=== PATIENT | male | born 1995 | race Caucasian/White ===

== ENCOUNTER 2017-04-11 23:37 | Emergency (ER) | payer OTHER ==
--- NOTE | 2017-04-11 23:55 | ED Physician Documentation ---
PD HPI UPPER EXT INJURY - Stated complaint Stated Complaint: RT HAND LACERATION - Chief complaint Chief Complaint: Laceration - History obtained from History obtained from: Patient - History of Present Illness Location: Right, Hand Type of injury: Laceration Where injury occurred: Home Timing - onset: Enter time (22:00) Timing - details: Abrupt onset Improved by: Rest Worsened by: Moving Associated symptoms: No: Weakness, Numbness Similar symptoms before: Has not had sx before Recently seen: Not recently seen - Additonal information Additional information: was throwing out garbage that contained broken glass, tripped and made contact with the broken glass, causing laceration to right hand at base of thumb. Patient is right-hand dominant Review of Systems Skin: reports: Laceration (s) Musculoskeletal: reports: Extremity pain Neurologic: denies: Focal weakness, Numbness PD PAST MEDICAL HISTORY - Past Medical History Past Medical History: No Cardiovascular: None Respiratory: None Neuro: None Endocrine/Autoimmune: None GI: None : None HEENT: None Psych: None Musculoskeletal: None Derm: None - Past Surgical History Past Surgical History: No - Present Medications Home Medications: Ambulatory Orders Medication Instructions Recorded Confirmed Amoxicillin 1 cap PO 04/11/17 Pseudoephedrine [Sudafed] 1 tab PO DAILY PRN 04/11/17 04/11/17 - Allergies Allergies/Adverse Reactions: Allergies Allergy/AdvReac Type Severity Reaction Status Date / Time No Known Drug Allergies Allergy Verified 04/11/17 23:44 - Social History Does the pt smoke?: Yes Smoking Status: Current every day smoker Does the pt drink ETOH?: Yes ETOH Use: Wine, Beer Does the pt have substance abuse?: No - Immunizations Immunizations are current?: Yes - POLST Patient has POLST: No PD ED PE NORMAL - Vitals Vital signs reviewed: Yes - General General: Alert and oriented X 3, No acute distress, Well developed/nourished - Extremities Extremities: No tenderness to palpate, Normal ROM s pain - Neuro Neuro: No motor deficit (full strength in flexion/extension/abduction/adduction of right thumb (PIP and IP joints tested independently)), No sensory deficit PD ED PE EXPANDED - Extremities HARISH UE/Hands Visual: 1 - laceration (2 cm) Results - Vitals Vitals: Vital Signs - 24 hr 04/11/17 04/12/17 23:40 01:02 Temperature 36.5 C Heart Rate 107 H 87 Respiratory 16 20 Rate Blood Pressure 136/87 H 169/87 H O2 Saturation 99 98 Oxygen O2 Source Room air Procedures - Laceration (location) Finger right Ventral Length in cm: 2 Wound type: Linear, Into subcut fat, Clean Neurovascular status: Sensory intact, Motor intact, Vascular intact Tendon involvement: Tendon intact Anesthesia: Lidocaine 1% Wound Preparation: Chlorhexadine Skin layer closure: Nylon, Interrupted (running sutures with one simple interrupted), Running, Size #-0 - enter number (4-0) Other: Patient tolerated well, No complications, Neurovascular intact, Dressing applied, Tetanus UTD Complexity: Simple PD MEDICAL DECISION MAKING - ED course Complexity details: considered differential, d/w patient Departure - Departure Disposition: 01 Home, Self Care Clinical Impression: Laceration Condition: Good Instructions: ED Laceration Hand Follow-Up: VERNON VALLE MD [Primary Care Provider] - (7-10 days for removal of the stitches) Forms: Activity restrictions Discharge Date/Time: 04/12/17 01:11
[2017-04-12] MEDS ORDERED: LIDOCAINE 1% 2 ML VIAL ONE (00:21)
[2017-04-12] MEDS ORDERED: BACITRACIN OINT TOP STA (00:53)
[2017-04-12] MEDS ORDERED: BACITRACIN OINT TOP ONE (01:01)
[2017-04-12 01:05] VITALS: BP 169/87
== END 2017-04-12 01:11 | disposition home or self-care (01) ==
LOC: ED 23:37
DX: S61.411A Laceration without foreign body of right hand, initial encounter (principal); W01.110A Fall on same level from slipping, tripping and stumbling with subsequent striking against sharp glass, initial encounter; Y93.89 Activity, other specified; Y92.009 Unspecified place in unspecified non-institutional (private) residence as the place of occurrence of the external cause; F17.200 Nicotine dependence, unspecified, uncomplicated
CPT/HCPCS: 12001; 99283; A9270